=== PATIENT | female | born 1965 ===

== ENCOUNTER 2017-07-04 12:53 | Emergency (ER) | payer MEDICAID ==
[2017-07-04 13:00] VITALS: RESP 18
[2017-07-04] MEDS ORDERED: Oxycodone/Acetaminophen 5/325 mg Tab PO STA (13:33)
[2017-07-04] MEDS ORDERED: Oxycodone/Acetaminophen 5/325 mg Tab ONE (13:55)
--- NOTE | 2017-07-04 14:24 | RAD ---
PROCEDURE: Left Hip X-ray Radiographs. HISTORY: trauma COMPARISON: None. FINDINGS: BONES: Normal. No fracture. JOINTS: Normal. SOFT TISSUES: Normal. OTHER FINDINGS: None. IMPRESSION: Normal left hip radiographs.
--- NOTE | 2017-07-04 14:37 | C.PDOC ---
History Of Present Illness 51 yo female c/o left hip pain since last night after a slip and fall in the bathroom. Pt notes she landed on her left hip. Reports pain with ambulation. Denies any other trauma, change in sensation, loc, n/v, or head injury. Denies back pain, urinary or bowel incontinence. Took Naproxen prior to arrival. Time Seen by Provider: 07/04/17 13:06 Chief Complaint (Nursing): Lower Extremity Problem/Injury History Per: Patient History/Exam Limitations: no limitations Onset/Duration Of Symptoms: Days (yesterday) Current Symptoms Are (Timing): Still Present Past Medical History Vital Signs: Last Vital Signs Temp 99 F 07/04/17 15:10 Pulse 76 07/04/17 15:10 Resp 18 07/04/17 15:10 BP 140/78 07/04/17 15:10 Pulse Ox 99 07/04/17 15:10 - Medical History PMH: HTN Family History: States: Unknown Family Hx - Social History Hx Alcohol Use: Yes Hx Substance Use: No - Immunization History Hx Tetanus Toxoid Vaccination: No Hx Influenza Vaccination: No Hx Pneumococcal Vaccination: No Review Of Systems Except As Marked, All Systems Reviewed And Found Negative. Musculoskeletal: Positive for: Other (left hip) Physical Exam - Physical Exam Appears: Well, Non-toxic, No Acute Distress Skin: Normal Color, Warm, Dry Head: Atraumatic, Normacephalic Eye(s): bilateral: Normal Inspection, EOMI Nose: Normal Oral Mucosa: Moist Neck: Normal, Normal ROM, Supple Chest: Symmetrical Respiratory: No Accessory Muscle Use Gastrointestinal/Abdominal: Normal Exam, Soft, No Tenderness Back: Normal Inspection, No CVA Tenderness, No Vertebral Tenderness Extremity: Normal ROM, Tenderness (Left hip), Capillary Refill (<2 sec), No Swelling Extremity: Bilateral: Normal Color And Temperature, Normal ROM Pulses: Left Dorsalis Pedis: Normal, Right Dorsalis Pedis: Normal Neurological/Psych: Oriented x3, Normal Speech, Normal Motor, Normal Sensation Gait: Steady ED Course And Treatment O2 Sat by Pulse Oximetry: 97 - Other Rad Hip XR L X-Ray: Viewed By Me, Read By Radiologist Interpretation: Accession No. : [id number]. Patient Name / ID : ROYCE VALDIVIA / [id number]. Exam Date : 07/04/2017 13:54:22 ( Approved ). Study Comment : Sex / Age : F / 51Y. Creator : Rosales Nunes MD. Dictator : Rosales Nunes MD. Combination Presser : Chemical Maker : Rosales Nunes MD. Approver2 : Report Date : 07/04/2017 14:22:47. My Comment : . PROCEDURE: Left Hip X-ray Radiographs. HISTORY: trauma. COMPARISON: None. FINDINGS: BONES: Normal. No fracture. JOINTS: Normal. SOFT TISSUES: Normal. OTHER FINDINGS: None. IMPRESSION: Normal left hip radiographs. Progress Note: Percocet ordered. Crutches given. Instructed RICE and follow up with PMD in 1-2 days. Return to ER if symtpoms persist or worsen. Disposition - Disposition Referrals: Ran Sanchez III, MD [Staff Provider] - Disposition: HOME/ ROUTINE Disposition Time: 14:34 Condition: STABLE Additional Instructions: Follow up with your primary medical doctor or clinic in 2-5 days for further evaluation. Take medications as prescribed. Return to the emergency department at any time if symptoms persist or worsen. Prescriptions: Naproxen [Naprosyn] 1 tab PO BID PRN #20 tab PRN Reason: Pain Instructions: Contusion (DC) Forms: [employer] ([place] Citizen), Work Excuse Print Language: MARSHALLESE - Clinical Impression Clinical Impression: Contusion of left hip
[2017-07-04 15:13] VITALS: BP 140/78; PULSE 76; TEMP 99
[2017-07-04 16:08] VITALS: O2SAT 97
== END 2017-07-04 15:12 | disposition home or self-care (01) ==
LOC: C.ER 12:53
DX: S70.02XA Contusion of left hip, initial encounter (principal); W01.0XXA Fall on same level from slipping, tripping and stumbling without subsequent striking against object, initial encounter; I10 Essential (primary) hypertension
CPT/HCPCS: 73502; 97116; 97161; 99283; G8978; G8979; G8980